=== PATIENT | female | born 2000 | race Caucasian/White ===

== ENCOUNTER 2024-04-27 11:54 | Outpatient (CLI) | payer BC | END 2024-04-27 23:59 | disposition home or self-care (01) | LOC: RAD 11:54 | PROVIDERS: ATTEND Nurse Practitioner | DX: N83.11 Corpus luteum cyst of right ovary (principal); N94.89 Other specified conditions associated with female genital organs and menstrual cycle; N85.8 Other specified noninflammatory disorders of uterus | CPT/HCPCS: 76830; 76856; 93976 ==